=== PATIENT | male | born 1935 | race Caucasian/White ===

== ENCOUNTER → 2017-01-21 | Outpatient (CLI) | payer MEDICARE, BC ==
[2017-01-21 08:15] LABS: Basophils # (A) 0.1 k/uL (0-0.2); Basophils % (A) 1 %; CH 35.4; CHCM 33.4; Eosinophils # (A) 0.4 k/uL (0-0.7); Eosinophils % (A) 4 %; HCT 45.2 % (39.0-53.0); HDW 2.57; HGB 14.9 gm/dL (13.0-17.5); Luc # (Auto) 0.35; Luc % (Auto) 4; Lymphocytes # (A) 2.4 k/uL (1.0-4.8); Lymphocytes % (A) 27 %; MCHC 32.9 g/dL (31.0-37.0); MCV 106.5 fL (80.0-100.0); Macrocytosis Moderate; Mean Platelet Volume 7.6; Monocytes # (A) 0.8 k/uL (0-1.0); Monocytes % (A) 9 %; Neutrophils # (A) 5.1 k/uL (1.3-7.7); Neutrophils % (A) 56 %; RBC 4.24 m/uL (4.30-5.90); RDW 13.5 % (11.5-15.5); WBC 9.1 k/uL (3.8-10.6); WBC (Perox) 8.87
[2017-01-21 08:19] LABS: Appearance,Urine Clear (Clear); Bilirubin,Urine Negative (Negative); Glucose,Urine (UA) Negative (Negative); Ketones,Urine Negative (Negative); Leukocyte Esterase,Urine Negative (Negative); Nitrite,Urine Negative (Negative); PH, Urine 6.5 (5.0-8.0); Particle Count 467; Protein,Urine 2+ (Negative); RBC,Urine <1 /hpf (0-5); Specific Gravity,Urine 1.013 (1.001-1.035); UA Billing (MACRO vs. MICRO) MICRO; Urobilinogen,Urine <2.0 mg/dL (<2.0); WBC,Urine 1 /hpf (0-5)
[2017-01-21 09:07] LABS: ALT 39 U/L (21-72); AST 25 U/L (17-59); Alkaline Phosphatase 98 U/L (38-126); Anion Gap 6 mmol/L; Blood Urea Nitrogen 18 mg/dL (9-20); Calcium 10.8 mg/dL (8.4-10.2); Carbon Dioxide 33 mmol/L (22-30); Chloride 104 mmol/L (98-107); Cholesterol 169 mg/dL (<200); Creatine Kinase 44 U/L (55-170); Glucose 121 mg/dL (74-99); HDL Cholesterol 51 mg/dL (40-60); Non-African American GFR(MDRD) >60 (>60 ml/min/1.73 sqM); Sodium 143 mmol/L (137-145); Total Bilirubin 0.4 mg/dL (0.2-1.3); Total Protein 6.6 g/dL (6.3-8.2); Uric Acid 5.4 mg/dL (3.5-8.5)
[2017-01-21 09:33] LABS: Prostate Specific Antigen 2.34 ng/mL (0.00-4.00)
[2017-01-21 14:39] LABS: Hemoglobin A1C 5.9 % (4.2-6.1)
== END | disposition home or self-care (01) ==
LOC: LABWHC1 07:45
PROVIDERS: ATTEND Internal Medicine
DX: E55.9 Vitamin D deficiency, unspecified (principal); R79.9 Abnormal finding of blood chemistry, unspecified; E78.00 Pure hypercholesterolemia, unspecified; I10 Essential (primary) hypertension; N40.1 Benign prostatic hyperplasia with lower urinary tract symptoms; G47.33 Obstructive sleep apnea (adult) (pediatric)
CPT/HCPCS: 36415; 80053; 80061; 81001; 82306; 82550; 83036; 84153; 84439; 84443; 84550; 85025

== ENCOUNTER → 2018-11-27 | Outpatient (CLI) | payer MEDICARE, BC ==
--- NOTE | 2018-11-27 16:11 | US ---
EXAMINATION TYPE: US venous doppler duplex LE BI DATE OF EXAM: 11/27/2018 3:42 PM COMPARISON: NONE CLINICAL HISTORY: 83-year-old male M79.606 PAIN IN HAILY LEGS. Pain bilateral legs SIDE PERFORMED: bilateral TECHNIQUE: The lower extremity deep venous system is examined utilizing real time linear array sonog lanie with graded compression, doppler sonography and color-flow sonography. FINDINGS: VESSELS IMAGED: External Iliac Vein (EIV) Common Femoral Vein Deep Femoral Vein Greater Saphenous Vein * Femoral Vein Popliteal Vein Small Saphenous Vein * Proximal Calf Veins (* superficial vessels) Right Leg: Hair Dryer notes: No evidence of DVT. Limitations due to patient's body habitus, unable to visualize lower femoral vein for compression Left Leg: No evidence of DVT IMPRESSION: 1. No evidence for DVT within the left lower extremity imaged from the groin to the upper calf. 2. Assessment of the right lower extremity limited due to patient body habitus. Unable to adequately visualize the lower femoral vein. No evidence for DVT within the remainder of the right lower extremi ty imaged down to the upper calf.
== END | disposition home or self-care (01) ==
LOC: RADUSWWP 15:12
PROVIDERS: ATTEND Internal Medicine
DX: M79.606 Pain in leg, unspecified (principal)
CPT/HCPCS: 93970

== ENCOUNTER 2021-01-16 11:54 | Inpatient (IN) | payer MEDICARE, BC ==
[2021-01-16] MEDS ORDERED: NITROGLYCERIN OINT 1 INCH/GM PACKET TOPICAL STA (12:01)
--- NOTE | 2021-01-16 12:04 | ED ---
General Adult HPI - General Stated complaint: chest pain Time Seen by Provider: 01/16/21 11:54 Source: patient, RN notes reviewed, old records reviewed - History of Present Illness Initial comments: This is an 85-year-old male with past medical history significant for coronary artery disease and patient states he's had an FL in the past. Patient also has a history of high blood pressure and high cholesterol but denies any history of diabetes. Patient states she smoked many years ago but not recently. Patient states he woke up about 3:00 in the morning and had chest heaviness and some shortness of breath. Patient states took 2 of his nitroglycerin with no relief and so he called EMS this morning they came gave him another nitroglycerin and aspirin and he still had no relief. Patient currently says he is feeling a l ittle bit better than he was as morning. Patient denies any fever chills or cough per patient denies any palpitations. Patient denies any lightheadedness or dizziness. Patient denies any leg swelling or calf tenderness. Patient denies abdominal pain patient denies nausea vomiting diarrhea. Patient indicated that this pain felt like the same pain he had before when he had a heart attack. - Related Data Home Medications Medication Instructions Recorded Confirmed Ammonium Lactate Cream [Lac-Hydrin 1 applic TOPICAL BID 01/16/21 01/16/21 12% Cream] Aspirin EC [Ecotrin Low Dose] 81 mg PO DAILY 01/16/21 01/16/21 Calcium Carbonate/Vitamin D3 1 tab PO AC-BID 01/16/21 01/16/21 [Calcium 500-Vit D3 5 Mcg (200 Iu)] Clonidine(Unknown Dose) 1 tab PO HS 01/16/21 01/16/21 Cyanocobalamin (Vitamin B-12) 1,000 mcg PO Q48H 01/16/21 01/16/21 [Vitamin B-12] Docusate [Colace] 100 mg PO DAILY PRN 01/16/21 01/16/21 Ferrous Sulfate [Feosol] 325 mg PO DAILY 01/16/21 01/16/21 Fluticasone/Umeclidin/Vilanter 1 puff INHALATION DIRECTED 01/16/21 01/16/21 [Trelegy Ellipta 100-62.5-25] Folic Acid 1 mg PO DAILY 01/16/21 01/16/21 Furosemide [Lasix] 40 mg PO BID 01/16/21 01/16/21 Gabapentin 600 mg PO HS 01/16/21 01/16/21 Gabapentin [Neurontin] 300 mg PO DAILY 01/16/21 01/16/21 Ipratropium-Albuterol Nebulize 3 ml INHALATION RT-QID PRN 01/16/21 01/16/21 [Duoneb 0.5 mg-3 mg/3 ml Soln] Ipratropium/Albuter 20-100Mcg 1 puff INHALATION DIRECTED 01/16/21 01/16/21 [Combivent Respimat 20-100Mcg Inhaler] Losartan [Cozaar] 50 mg PO BID 01/16/21 01/16/21 Nitroglycerin Sl Tabs [Nitrostat] 0.4 mg SL Q5M PRN 01/16/21 01/16/21 Omeprazole 20 mg PO DIRECTED 01/16/21 01/16/21 Tamsulosin [Flomax] 0.4 mg PO DAILY 01/16/21 01/16/21 Vit C/E/Zn/Coppr/Lutein/Zeaxan 1 cap PO DAILY 01/16/21 01/16/21 [Preservision Areds 2 Softgel] rOPINIRole HCL [Requip] 0.25 mg PO HS 01/16/21 01/16/21 Allergies Allergy/AdvReac Type Severity Reaction Status Date / Time No Known Allergies Allergy Verified 01/16/21 12:29 Review of Systems ROS Statement: Those systems with pertinent positive or pertinent negative responses have been documented in the HPI. ROS Other: All systems not noted in ROS Statement are negative. General Exam - General Exam Comments Initial Comments: GENERAL: Patient is well-developed and well-nourished. Patient is nontoxic and well- hydrated and is in mild distress. ENT: Neck is soft and supple. No significant lymphadenopathy is noted. Oropharynx is clear. Moist mucous membranes. Neck has full range of motion without el iciting any pain. EYES: The sclera were anicteric and conjunctiva were pink and moist. Extraocular movements were intact and pupils were equal round and reactive to light. Eyelids were unremarkable. PULMONARY: Unlabored respirations. Good breath sounds bilaterally. No audible rales rhonchi or wheezing was noted. CARDIOVASCULAR: There is a regular rate and rhythm without any murmurs gallops or rubs. ABDOMEN: Soft and nontender with normal bowel sounds. SKIN: Skin is clear with no lesions or rashes and otherwise unremarkable. NEUROLOGIC: Patient is alert and oriented x3. Cranial nerves II through XII are grossly intact. Motor and sensory are also intact. Normal speech, volume and content. Symmetrical smile. MUSCULOSKELETAL: Normal extremities with adequate strength and full range of motion. No lower extremity swelling or edema. No calf tenderness. LYMPHATICS: No significant lymphadenopathy is noted PSYCHIATRIC: Normal psychiatric evaluation. Course Vital Signs 01/16/21 12:02 Temperature 98.0 F Pulse Rate 58 L Respiratory 18 Rate Blood Pressure 167/84 O2 Sat by Pulse 92 L Oximetry Medical Decision Making - Medical Decision Making Patient's chest pain is much improved. Chest x-ray shows no acute abnormality. EKG shows sinus rhythm with occasional PVC at 68 bpm AL interval is 280 QRS is 122 QT interval 426 QTC is 452. Patient's EKG shows no ST segment elevation or depression. I spoke with Dr. Hollins he agreed to admit the patient admitted the patient write admitting orders. I started the patient on heparin I continue heparin and aspirin and Nitropaste floor. I consult to cardiology. - Lab Data Result diagrams: 01/16/21 12:46 01/16/21 12:46 Lab Results 01/16/21 01/16/21 01/16/21 Range/Units 12:46 12:46 12:46 WBC 7.9 (3.8-10.6) k/uL RBC 3.08 L (4.30-5.90) m/uL Hgb 11.4 L (13.0-17.5) gm/dL Hct 33.1 L (39.0-53.0) % MCV 107.5 H (80.0-100.0) fL MCH 36.9 H (25.0-35.0) pg MCHC 34.3 (31.0-37.0) g/dL RDW 13.4 (11.5-15.5) % Plt Count 341 (150-450) k/uL MPV 8.7 Neutrophils % 60 % Lymphocytes % 22 % Monocytes % 10 % Eosinophils % 4 % Basophils % 1 % Neutrophils # 4.7 (1.3-7.7) k/uL Lymphocytes # 1.7 (1.0-4.8) k/uL Monocytes # 0.8 (0-1.0) k/uL Eosinophils # 0.3 (0-0.7) k/uL Basophils # 0.1 (0-0.2) k/uL Macrocytosis Moderate PT 10.2 (9.0-12.0) sec INR 0.9 (<1.2) APTT 25.0 (22.0-30.0) sec Sodium 139 (137-145) mmol/L Potassium 4.1 (3.5-5.1) mmol/L Chloride 104 (98-107) mmol/L Carbon Dioxide 31 H (22-30) mmol/L Anion Gap 4 mmol/L BUN 33 H (9-20) mg/dL Creatinine 1.36 H (0.66-1.25) mg/dL Est GFR (CKD-EPI)AfAm 55 (>60 ml/min/1.73 sqM) Est GFR (CKD-EPI)NonAf 47 (>60 ml/min/1.73 sqM) Glucose 112 H (74-99) mg/dL Calcium 10.1 (8.4-10.2) mg/dL Magnesium 2.1 (1.6-2.3) mg/dL Total Bilirubin 0.6 (0.2-1.3) mg/dL AST 28 (17-59) U/L ALT 15 (4-49) U/L Alkaline Phosphatase 119 (38-126) U/L Troponin I (0.000-0.034) ng/mL Total Protein 5.9 L (6.3-8.2) g/dL Albumin 3.4 L (3.5-5.0) g/dL 01/16/21 Range/Units 12:46 WBC (3.8-10.6) k/uL RBC (4.30-5.90) m/uL Hgb (13.0-17.5) gm/dL Hct (39.0-53.0) % MCV (80.0-100.0) fL MCH (25.0-35.0) pg MCHC (31.0-37.0) g/dL RDW (11.5-15.5) % Plt Count (150-450) k/uL MPV Neutrophils % % Lymphocytes % % Monocytes % % Eosinophils % % Basophils % % Neutrophils # (1.3-7.7) k/uL Lymphocytes # (1.0-4.8) k/uL Monocytes # (0-1.0) k/uL Eosinophils # (0-0.7) k/uL Basophils # (0-0.2) k/uL Macrocytosis PT (9.0-12.0) sec INR (<1.2) APTT (22.0-30.0) sec Sodium (137-145) mmol/L Potassium (3.5-5.1) mmol/L Chloride (98-107) mmol/L Carbon Dioxide (22-30) mmol/L Anion Gap mmol/L BUN (9-20) mg/dL Creatinine (0.66-1.25) mg/dL Est GFR (CKD-EPI)AfAm (>60 ml/min/1.73 sqM) Est GFR (CKD-EPI)NonAf (>60 ml/min/1.73 sqM) Glucose (74-99) mg/dL Calcium (8.4-10.2) mg/dL Magnesium (1.6-2.3) mg/dL Total Bilirubin (0.2-1.3) mg/dL AST (17-59) U/L ALT (4-49) U/L Alkaline Phosphatase (38-126) U/L Troponin I 0.033 (0.000-0.034) ng/mL Total Protein (6.3-8.2) g/dL Albumin (3.5-5.0) g/dL Critical Care Time Critical Care Time: Yes Total Critical Care Time: 35 Disposition Clinical Impression: Unstable angina pectoris Disposition: ADMITTED IP TO THIS [facility] Time of Disposition: 13:54
[2021-01-16 12:55] LABS: Basophils # (A) 0.1 k/uL (0-0.2); Basophils % (A) 1 %; Eosinophils # (A) 0.3 k/uL (0-0.7); Eosinophils % (A) 4 %; HCT 33.1 % (39.0-53.0); HGB 11.4 gm/dL (13.0-17.5); Lymphocytes # (A) 1.7 k/uL (1.0-4.8); Lymphocytes % (A) 22 %; MCH 36.9 pg (25.0-35.0); MCHC 34.3 g/dL (31.0-37.0); MCV 107.5 fL (80.0-100.0); Macrocytosis Moderate; Mean Platelet Volume 8.7; Monocytes # (A) 0.8 k/uL (0-1.0); Monocytes % (A) 10 %; Neutrophils # (A) 4.7 k/uL (1.3-7.7); Neutrophils % (A) 60 %; Platelet Count 341 k/uL (150-450); RBC 3.08 m/uL (4.30-5.90); RDW 13.4 % (11.5-15.5); WBC 7.9 k/uL (3.8-10.6)
[2021-01-16 13:05] LABS: Albumin 3.4 g/dL (3.5-5.0); Calcium 10.1 mg/dL (8.4-10.2); INR 0.9 (<1.2); Magnesium 2.1 mg/dL (1.6-2.3); Potassium 4.1 mmol/L (3.5-5.1); Prothrombin Time 10.2 sec (9.0-12.0); Total Bilirubin 0.6 mg/dL (0.2-1.3); Total Protein 5.9 g/dL (6.3-8.2)
--- NOTE | 2021-01-16 13:36 | XR ---
EXAMINATION TYPE: XR chest 2V DATE OF EXAM: 01/16/2021 COMPARISON: Radiographs 12/22/2017 HISTORY: Chest pain TECHNIQUE: Frontal and lateral views of the chest are obtained. FINDINGS: Heart is enlarged, stable. The pulmonary vasculature is prominent centrally similar to anne or. There is similar elevation of the right hemidiaphragm. There are bilateral, right greater than left b asilar strandy opacities. There is blunting of the left costophrenic angle. The osseous structures ar e intact. IMPRESSION: Cardiomegaly with central pulmonary vascular distention and a small left effusion.
[2021-01-16] MEDS ORDERED: HEPARIN SODIUM 1,000 UN/ML (10ML VL) IV ONE (13:55)
[2021-01-16] MEDS ORDERED: NITROGLYCERIN SL TABS 0.4 MG TAB SUBLINGUAL PRN (13:56)
[2021-01-16] MEDS: HEPARIN SOD,PORK IN 0.45% NACL 25,000 UNIT in 0.45% NACL 1 250ML.BAG IV SCH (15:35)
[2021-01-16] MEDS: NITROGLYCERIN OINT 1 INCH/GM PACKET TOPICAL SCH (20:23)
[2021-01-16] MEDS ORDERED: HEPARIN SODIUM 1,000 UN/ML (10ML VL) IV PRN (22:21)
[2021-01-17] MEDS: NITROGLYCERIN OINT 1 INCH/GM PACKET TOPICAL SCH ×5 (00:14→23:34)
[2021-01-17] MEDS ORDERED: IPRATROPIUM-ALBUTEROL 3 ML NEB INHALATION PRN (07:44)
[2021-01-17] MEDS ORDERED: DOCUSATE 100 MG CAP PO PRN (07:44)
[2021-01-17] MEDS: LOSARTAN 50 MG TAB PO SCH ×2 (08:12→20:08)
[2021-01-17] MEDS: PANTOPRAZOLE 40 MG TABLET PO SCH (08:12)
[2021-01-17] MEDS ORDERED: ASPIRIN 325 MG TAB PO SCH (09:00)
--- NOTE | 2021-01-17 10:40 | P.HPIM ---
History of Present Illness H&P Date: 01/17/21 Chief Complaint: Chest pain HISTORY OF PRESENT ILLNESS: This is an 85-year-old male one of my patient with a previous medical history significant for hypertension and hypertensive cardio vascular disease, hyperlipidemia, history of chronic obstructive pulmonary disease, history of chronic diastolic heart failure, chronic kidney disease, obesity with obstructive sleep apnea and obesity hypoventilation syndrome, history of skin cancer, patient was recently hospitalized at [facility] after he was admitted to the hospital with increased swelling in both lower extremity and increased shortness of breath was seen in consultation by pulmonary medicine as well as by cardiology he underwent a battery of testing including us x-ray as well as echocardiogram that showed normal ejection fraction of 55% with mild aortic stenosis and diastolic dysfunction, and he developed to have a significant bradycardia arrhythmias he was taken off beta blockers and his med ications were adjusted, and the patient followed up with me as an outpatient in the office last week and he was doing fine with a new changes of his medication apparently the patient was brought into the emergency department at [facility] yesterday because of increased chest pain and shortness of breath he stated that he woke up at 3:00 in the morning on the day of the admission with increased chest pain and heaviness he took 2 nitroglycerin without relief EMS came and saw the patient on became the third nitro glycerin and an aspirin and transported him to the emergency department at [facility] his 12-lead EKG showed sinus rhythm with first-degree AV block and a Q-wave inferiorly suggestive of an old OR, chest x-ray did not show any evidence of acute of normalities, patient was admitted to the hospital for evaluation by cardiology rule out acute coronary syndrome. REVIEW OF SYSTEMS: Constitutional: No documented fever, no chills, no night sweats. No weight change. No weakness, fatigue or lethargy. No daytime sleepiness. HEENT: No headache. No blurred vision or double vision, no loss of vision. No loss of Hearing, no ringing in the ears, no dizziness. No nasal drainage or congestion. No epistaxis. No sore throat. Lungs: positive for shortness of breath, no cough, no sputum production. No wheezing. Reports dyspnea with activity. Cardiovascular: positive for chest pain, positive for lower extremity edema. No palpitations. No paroxysmal nocturnal dyspnea. No orthopnea. No lightheadedness or dizziness. No syncopal episodes. Abdominal: Reports no abdominal pain. No nausea, vomiting. No diarrhea. No constipation. No bloody or tarry stools reports loss of appetite. Genitourinary: No dysuria, increased frequency, urgency. No urinary retention. Musculoskeletal: No myalgias. positive for muscle weakness, no gait dysfunction, no frequent falls. positive for back pain, positive for neck pain. Integumentary: No wounds, no lesions. No rash or pruritus. No unusual bruising. No change in hair or nails. Neurologic: No aphasia. No facial droop. No change in mentation. No head injury. No headache. No paralysis. positive for paresthesia. Psychiatric: No depression. No anxiety. No mood swings. Endocrine: No abnormal blood sugars. No weight change. PAST MEDICAL HISTORY: Coronary artery disease status post myocardial infarction. Hypertension and hypertensive cardio vascular disease. Hyperlipidemia. Chronic kidney disease stage II. Enlarged prostate. COPD Obesity with obstructive sleep apnea. Restless leg syndrome. Neuropathy. GERD Chronic diastolic heart failure. PAST SURGICAL HISTORY: Tonsillectomy and adenoidectomy. Bilateral total knee arthroplasty. Bilateral cataract surgery. Exploratory laparotomy with splenectomy. Skin cancer removal. SOCIAL HISTORY: Patient used to smoke about pack every day smoker for many years and he quit many years ago, he drinks occasionally, denies any drug abuse. He lives with his . FAMILY HISTORY: Father at age of 76 from diabetes mellitus type 2 as well as hypertension and he had a history of stroke, mother at age of 84 and she had a history of hypertension, patient had 2 brothers one of them from colon cancer and West Nile virus the other one is alive patient had 3 sisters one at the age of 1-year-old one from breast cancer and the third one from Alzheimer dementia patient has one son who is morbidly obese and one daughter no major m edical problems PHYSICAL EXAMINATION: General: This is an 85-year-old male who is laying down in bed in no apparent distress. HEENT: Head is atraumatic, normocephalic, pupils were equal round reactive to light and recommendation, extraocular muscle movement were intact, sclera nonicteric, conjunctivae were pale, mucous membranes of the mouth are somewhat dry. Neck: Supple, no JVP, normal carotid upstroke bilaterally, no lymphadenopathy. Chest: Decreased breath sounds at the bases, few rhonchi, no expiratory wheezes, no chest wall tenderness, no intercostal retractions. Heart: First heart sound is normal, second heart sounds normal the systolic ejection murmur 2/6 over the left sternal border. Abdomen: Soft, nontender, nondistended, positive bowel sounds. Extremities: There is +1 edema no calf tenderness DP +2 bilaterally. Neurologic examination: Patient is awake alert and oriented X 3, cranial nerves II-12 appear grossly intact, muscle power were 5 out of 5 in upper extremities and 5 out of 5 in bilateral lower extremities, deep tendon reflexes normal bilaterally. ASSESSMENT AND PLAN: 1. Non-ST elevation myocardial infarction. Patient was recently hospitalized at [facility] he underwent echocardiogram that did show evidence of diastolic dysfunction normal LV function of 55% as well as mild aortic stenosis, patient was started on aspirin 81 mg every day, he was started on heparin drip as well, he would be off beta terrance due to his bradyarrhythmias, we'll continue to monitor the patient very closely cardiology consultation for possible left heart catheterization, start the patient on atorvastatin 40 mg orally once every day as well. 2. History of coronary artery disease status post myocardial infarctions in the past. Continue aspirin 81 mg once every day, heparin drip, start the patient on Lipitor 40 mg once every day, hold off beta terrance due to bradycardia arrhythmias and pauses. 3. Hypertension and hypertensive cardiovascular disease. Continue patient on amlodipine 5 mg orally twice every day, continue losartan 50 mg orally twice every day, continue clonidine 0.1 mg orally at bedtime, start the patient on hydralazine 25 mg orally twice every day. 4. Hyperlipidemia. Start the patient on atorvastatin 40 mg orally once every day. 5. Chronic obstructive pulmonary disease. Continue patient on DuoNeb 3 mg nebulization 4 times every day as well as Trelegy Ellipta once every day. 6. Obesity with obstructive sleep apnea and obesity hypoventilation syndrome. Continue weight loss, continue CPAP machine. 7. Restless leg syndrome. Continue Requip 0.25 mg orally bedtime. 8. Chronic kidney disease stage II. The patient is stable. 9. Chronic diastolic heart failure. Continue patient on losartan 50 mg orally twice every day, continue patient on Lasix 40 mg orally twice every day. 10. GERD. Continue omeprazole 20 mg orally once every day. 11. Peripheral neuropathy. Continue gabapentin 600 mg in the evening and 300 mg in the morning. 12. Enlarged prostate. Continue Flomax 0.4 mg once every day. 13. DVT prophylaxis. Continue heparin drip. 14. GI prophylaxis. Continue with PPI. 15. Admit to inpatient. Estimated length of stay 2 midnights. 16. Full code. Past Medical History Past Medical History: Cancer, COPD, Hyperlipidemia, Hypertension, Osteoarthritis (OA), Renal Disease Additional Past Medical History / Comment(s): skin CA, NSTEMI December 2020. History of Any Multi-Drug Resistant Organisms: MRSA Date of last positivie culture/infection: Pt is unsure but states it has been years. MDRO Source:: Right knee after knee replacement Past Surgical History: Orthopedic Surgery, Tonsillectomy Additional Past Surgical History / Comment(s): ex lap - SPLEENECTOMY, eye surgery, bilateral knee replacements Past Anesthesia/Blood Transfusion Reactions: No Reported Reaction Past Psychological History: No Psychological Hx Reported Smoking Status: Former smoker Past Alcohol Use History: Occasional Additional Past Alcohol Use History / Comment(s): Pt states he has 1 drink maybe every other day. Past Drug Use History: None Reported - Past Family History Father Family Medical History: Diabetes Mellitus Mother Family Medical History: Hypertension Medications and Allergies Home Medications Medication Instructions Recorded Confirmed Type Ammonium Lactate Cream [Lac-Hydrin 1 applic TOPICAL BID 01/16/21 01/16/21 History 12% Cream] Aspirin EC [Ecotrin Low Dose] 81 mg PO DAILY 01/16/21 01/16/21 History Calcium Carbonate/Vitamin D3 1 tab PO AC-BID 01/16/21 01/16/21 History [Calcium 500-Vit D3 5 Mcg (200 Iu)] Clonidine(Unknown Dose) 1 tab PO HS 01/16/21 01/16/21 History Cyanocobalamin (Vitamin B-12) 1,000 mcg PO Q48H 01/16/21 01/16/21 History [Vitamin B-12] Docusate [Colace] 100 mg PO DAILY PRN 01/16/21 01/16/21 History Ferrous Sulfate [Feosol] 325 mg PO DAILY 01/16/21 01/16/21 History Fluticasone/Umeclidin/Vilanter 1 puff INHALATION DIRECTED 01/16/21 01/16/21 History [Trelegy Ellipta 100-62.5-25] Folic Acid 1 mg PO DAILY 01/16/21 01/16/21 History Furosemide [Lasix] 40 mg PO BID 01/16/21 01/16/21 History Gabapentin 600 mg PO HS 01/16/21 01/16/21 History Gabapentin [Neurontin] 300 mg PO DAILY 01/16/21 01/16/21 History Ipratropium-Albuterol Nebulize 3 ml INHALATION RT-QID PRN 01/16/21 01/16/21 History [Duoneb 0.5 mg-3 mg/3 ml Soln] Ipratropium/Albuter 20-100Mcg 1 puff INHALATION DIRECTED 01/16/21 01/16/21 History [Combivent Respimat 20-100Mcg Inhaler] Losartan [Cozaar] 50 mg PO BID 01/16/21 01/16/21 History Nitroglycerin Sl Tabs [Nitrostat] 0.4 mg SL Q5M PRN 01/16/21 01/16/21 History Omeprazole 20 mg PO DIRECTED 01/16/21 01/16/21 History Tamsulosin [Flomax] 0.4 mg PO DAILY 01/16/21 01/16/21 History Vit C/E/Zn/Coppr/Lutein/Zeaxan 1 cap PO DAILY 01/16/21 01/16/21 History [Preservision Areds 2 Softgel] rOPINIRole HCL [Requip] 0.25 mg PO HS 01/16/21 01/16/21 History Allergies Allergy/AdvReac Type Severity Reaction Status Date / Time No Known Allergies Allergy Verified 01/16/21 12:29 Physical Exam Vitals: Vital Signs Temp Pulse Pulse Resp BP BP Pulse Ox 01/17/21 08:00 16 01/17/21 07:00 98.1 F 61 16 179/85 95 01/17/21 06:55 98.2 F 62 18 196/95 99 01/17/21 05:37 59 L 171/86 01/17/21 02:00 59 L 20 01/17/21 00:52 97.6 F 59 L 20 180/79 95 01/16/21 20:27 56 L 172/56 01/16/21 20:00 56 L 01/16/21 19:26 97.4 F L 57 L 18 199/89 99 01/16/21 16:00 56 L 17 166/91 01/16/21 15:00 54 L 17 157/81 01/16/21 14:00 57 L 12 176/85 01/16/21 13:00 167/84 01/16/21 12:08 87 L 01/16/21 12:02 98.0 F 58 L 18 167/84 92 L Intake and Output 01/16/21 01/17/21 01/17/21 22:59 06:59 14:59 Intake Total 1047.167 91.652 Output Total 300 100 Balance 747.167 91.652 -100 Intake: Intake, IV Titration 67.167 91.652 Amount Heparin Sod,Pork in 0.45% 67.167 91.652 NaCl 25,000 unit In 0.45 % NaCl 1 250ml.bag @ 9. 585 UNITS/KG/HR 10 mls/hr IV .Q24H [facility] Rx#: [id number] Oral 980 0 Output: Urine 300 100 Other: Voiding Method Urinal Toilet Urinal Urinal Diaper # Voids 1 # Bowel Movements 1 Weight 104.326 kg Results CBC & Chem 7: 01/16/21 12:46 01/16/21 12:46 Labs: Abnormal Lab Results - Last 24 Hours (Table) 01/16/21 01/16/21 01/16/21 Range/Units 12:46 12:46 15:05 RBC 3.08 L (4.30-5.90) m/uL Hgb 11.4 L (13.0-17.5) gm/dL Hct 33.1 L (39.0-53.0) % MCV 107.5 H (80.0-100.0) fL MCH 36.9 H (25.0-35.0) pg APTT (22.0-30.0) sec Carbon Dioxide 31 H (22-30) mmol/L BUN 33 H (9-20) mg/dL Creatinine 1.36 H (0.66-1.25) mg/dL Glucose 112 H (74-99) mg/dL Troponin I 0.048 H* (0.000-0.034) ng/mL Total Protein 5.9 L (6.3-8.2) g/dL Albumin 3.4 L (3.5-5.0) g/dL 01/16/21 01/16/21 01/17/21 Range/Units 17:26 20:58 04:52 RBC (4.30-5.90) m/uL Hgb (13.0-17.5) gm/dL Hct (39.0-53.0) % MCV (80.0-100.0) fL MCH (25.0-35.0) pg APTT 41.6 H 46.5 H (22.0-30.0) sec Carbon Dioxide (22-30) mmol/L BUN (9-20) mg/dL Creatinine (0.66-1.25) mg/dL Glucose (74-99) mg/dL Troponin I 0.049 H* (0.000-0.034) ng/mL Total Protein (6.3-8.2) g/dL Albumin (3.5-5.0) g/dL Thrombosis Risk Factor Assmnt - Choose All That Apply Any of the Below Risk Factors Present?: Yes Each Factor Represents 1 point: Abnormal pulmonary function (COPD), Swollen legs (current) Each Risk Factor Represents 3 Points: Age 75 years or older Thrombosis Risk Factor Assessment Total Risk Factor Score: 5 Thrombosis Risk Factor Assessment Level: High Risk
[2021-01-17] MEDS ORDERED: ATORVASTATIN 40 MG TAB PO SCH (10:45)
[2021-01-17] MEDS: IPRATROPIUM 0.5 MG/2.5 ML NEBU INHALATION SCH ×3 (11:14→20:43)
[2021-01-17] MEDS: HEPARIN SOD,PORK IN 0.45% NACL 25,000 UNIT in 0.45% NACL 1 250ML.BAG IV SCH (11:26)
[2021-01-17] MEDS ORDERED: amLODIPine 5 MG TAB PO STA (11:45)
[2021-01-17] MEDS ORDERED: hydrALAZINE HCL 25 MG TAB PO STA (11:45)
[2021-01-17] MEDS: FOLIC ACID 1 MG TAB PO SCH (11:52)
[2021-01-17] MEDS: TAMSULOSIN 0.4 MG CAP.ER.24H PO SCH (11:52)
[2021-01-17] MEDS: GABAPENTIN 300 MG CAP PO SCH ×2 (11:52→20:08)
[2021-01-17] MEDS: FUROSEMIDE 40 MG TAB PO SCH ×2 (11:52→15:58)
[2021-01-17] MEDS: FERROUS SULFATE 325 MG TAB PO SCH (11:53)
[2021-01-17] MEDS: CALCIUM CARB-VIT D 500 MG-5 MCG TAB PO SCH ×2 (11:55→15:57)
[2021-01-17] MEDS: VIT A,C & E-LUTEIN-MINERALS 1 EACH TAB PO SCH (11:55)
--- NOTE | 2021-01-17 11:56 | P.CRDCN ---
History of Present Illness Consult date: 01/17/21 Requesting physician: Efren Foss Reason for Consult (text): Unstable angina Chief complaint: Chest pain History of present illness: This is Isaias Wiley NP dictating a consult on this patient on behalf of Dr. Mcdaniel. The patient was interviewed and examined. HPI: Patient is an 85-year-old male presented to the hospital with heaviness in his chest on the left side with mild pain which started 2 days ago. He states the pain was constant, and had no aggravating or alleviating factors. He reports a history of [place] in the past. During his interview he states that the discomfort is very mild but still present. ROS: [No fever, chills, or rigors] [no cough, phlegm, or expectoration] [no nausea, vomiting, or diarrhea] [no hematuria, dysuria] [no musculoskelatal complaints] [no strokes or seizures] [no skin lesions] EXAMINATION: GENERAL: Well-appearing, well-nourished and in no acute distress. NECK: Supple without JVD or thyromegaly. LUNGS: Breath sounds clear to auscultation bilaterally. Respiration equal and unlabored. No wheezes, rales or rhonchi. HEART: Regular rate and rhythm without rubs or gallops. Systolic murmur noted. S1 and S2 heard. EXTREMITIES: Normal range of motion, no edema. No clubbing or cyanosis. Peripheral pulses intact and strong. REVIEW OF LABS, ECG & MEDICAL DATA: LABS: Hemoglobin 11.4, APTT 46.5, sodium 139, potassium 4.1, B1 33, creatinine 1.36, serial troponins-0.033, 0.048, 0.049 EKG: Sinus rhythm with first-degree block VITALS: Temp 98.1, pulse 64, respirations 16, blood pressure 179/85, O2 sat 95% on 3 L nasal cannula. IMPRESSION/PLAN: 1. Chest pain with positive troponins-obtain echocardiogram. Schedule for heart cath. Continue anticoagulation. Increase hydralazine to 25 mg 3 times a day. Thank you for the consult and allowing us to participate in the care of this patient. Past Medical History Past Medical History: Cancer, COPD, Hyperlipidemia, Hypertension, Osteoarthritis (OA), Renal Disease Additional Past Medical History / Comment(s): skin CA, NSTEMI December 2020. History of Any Multi-Drug Resistant Organisms: MRSA Date of last positivie culture/infection: Pt is unsure but states it has been years. MDRO Source:: Right knee after knee replacement Past Surgical History: Orthopedic Surgery, Tonsillectomy Additional Past Surgical History / Comment(s): ex lap - SPLEENECTOMY, eye surgery, bilateral knee replacements Past Anesthesia/Blood Transfusion Reactions: No Reported Reaction Past Psychological History: No Psychological Hx Reported Smoking Status: Former smoker Past Alcohol Use History: Occasional Additional Past Alcohol Use History / Comment(s): Pt states he has 1 drink maybe every other day. Past Drug Use History: None Reported - Past Family History Father Family Medical History: Diabetes Mellitus Mother Family Medical History: Hypertension Medications and Allergies Home Medications Medication Instructions Recorded Confirmed Type Ammonium Lactate Cream [Lac-Hydrin 1 applic TOPICAL BID 01/16/21 01/16/21 Hi story 12% Cream] Aspirin EC [Ecotrin Low Dose] 81 mg PO DAILY 01/16/21 01/16/21 History Calcium Carbonate/Vitamin D3 1 tab PO AC-BID 01/16/21 01/16/21 History [Calcium 500-Vit D3 5 Mcg (200 Iu)] Clonidine(Unknown Dose) 1 tab PO HS 01/16/21 01/16/21 History Cyanocobalamin (Vitamin B-12) 1,000 mcg PO Q48H 01/16/21 01/16/21 History [Vitamin B-12] Docusate [Colace] 100 mg PO DAILY PRN 01/16/21 01/16/21 History Ferrous Sulfate [Feosol] 325 mg PO DAILY 01/16/21 01/16/21 History Fluticasone/Umeclidin/Vilanter 1 puff INHALATION DIRECTED 01/16/21 01/16/21 History [Trelegy Ellipta 100-62.5-25] Folic Acid 1 mg PO DAILY 01/16/21 01/16/21 History Furosemide [Lasix] 40 mg PO BID 01/16/21 01/16/21 History Gabapentin 600 mg PO HS 01/16/21 01/16/21 History Gabapentin [Neurontin] 300 mg PO DAILY 01/16/21 01/16/21 History Ipratropium-Albuterol Nebulize 3 ml INHALATION RT-QID PRN 01/16/21 01/16/21 History [Duoneb 0.5 mg-3 mg/3 ml Soln] Ipratropium/Albuter 20-100Mcg 1 puff INHALATION DIRECTED 01/16/21 01/16/21 History [Combivent Respimat 20-100Mcg Inhaler] Losartan [Cozaar] 50 mg PO BID 01/16/21 01/16/21 History Nitroglycerin Sl Tabs [Nitrostat] 0.4 mg SL Q5M PRN 01/16/21 01/16/21 History Omeprazole 20 mg PO DIRECTED 01/16/21 01/16/21 History Tamsulosin [Flomax] 0.4 mg PO DAILY 01/16/21 01/16/21 History Vit C/E/Zn/Coppr/Lutein/Zeaxan 1 cap PO DAILY 01/16/21 01/16/21 History [Preservision Areds 2 Softgel] rOPINIRole HCL [Requip] 0.25 mg PO HS 01/16/21 01/16/21 History Allergies Allergy/AdvReac Type Severity Reaction Status Date / Time No Known Allergies Allergy Verified 01/16/21 12:29 Physical Exam Vitals: Vital Signs Temp Pulse Pulse Resp BP BP Pulse Ox 01/17/21 11:25 64 01/17/21 11:15 64 01/17/21 08:00 16 01/17/21 07:00 98.1 F 61 16 179/85 95 01/17/21 06:55 98.2 F 62 18 196/95 99 01/17/21 05:37 59 L 171/86 01/17/21 02:00 59 L 20 01/17/21 00:52 97.6 F 59 L 20 180/79 95 01/16/21 20:27 56 L 172/56 01/16/21 20:00 56 L 01/16/21 19:26 97.4 F L 57 L 18 199/89 99 01/16/21 16:00 56 L 17 166/91 01/16/21 15:00 54 L 17 157/81 01/16/21 14:00 57 L 12 176/85 01/16/21 13:00 167/84 01/16/21 12:08 87 L 01/16/21 12:02 98.0 F 58 L 18 167/84 92 L Intake and Output 01/16/21 01/17/21 01/17/21 22:59 06:59 14:59 Intake Total 1047.167 91.652 67.077 Output Total 300 100 Balance 747.167 91.652 -32.923 Intake: Intake, IV Titration 67.167 91.652 67.077 Amount Heparin Sod,Pork in 0.45% 67.167 91.652 67.077 NaCl 25,000 unit In 0.45 % NaCl 1 250ml.bag @ 9. 585 UNITS/KG/HR 10 mls/hr IV .Q24H [facility] Rx#: [id number] Oral 980 0 Output: Urine 300 100 Other: Voiding Method Urinal Toilet Urinal Urinal Diaper # Voids 1 # Bowel Movements 1 Weight 104.326 kg Results 01/16/21 12:46 01/16/21 12:46 Cardiac Enzymes 01/16/21 01/16/21 01/16/21 Range/Units 12:46 12:46 15:05 AST 28 (17-59) U/L Troponin I 0.033 0.048 H* (0.000-0.034) ng/mL 01/16/21 Range/Units 17:26 AST (17-59) U/L Troponin I 0.049 H* (0.000-0.034) ng/mL Coagulation 01/16/21 01/16/21 01/17/21 Range/Units 12:46 20:58 04:52 PT 10.2 (9.0-12.0) sec APTT 25.0 41.6 H 46.5 H (22.0-30.0) sec CBC 01/16/21 Range/Units 12:46 WBC 7.9 (3.8-10.6) k/uL RBC 3.08 L (4.30-5.90) m/uL Hgb 11.4 L (13.0-17.5) gm/dL Hct 33.1 L (39.0-53.0) % Plt Count 341 (150-450) k/uL Comprehensive Metabolic Panel 01/16/21 Range/Units 12:46 Sodium 139 (137-145) mmol/L Potassium 4.1 (3.5-5.1) mmol/L Chloride 104 (98-107) mmol/L Carbon Dioxide 31 H (22-30) mmol/L BUN 33 H (9-20) mg/dL Creatinine 1.36 H (0.66-1.25) mg/dL Glucose 112 H (74-99) mg/dL Calcium 10.1 (8.4-10.2) mg/dL AST 28 (17-59) U/L ALT 15 (4-49) U/L Alkaline Phosphatase 119 (38-126) U/L Total Protein 5.9 L (6.3-8.2) g/dL Albumin 3.4 L (3.5-5.0) g/dL Current Medications Generic Name Dose Route Start Last Admin Trade Name Freq PRN Reason Stop Dose Admin Albuterol/Ipratropium 3 ml 01/17/21 07:44 Ipratropium-Albuterol 3 Ml Neb INHALATION RT-QID PRN Shortness Of Breath Amlodipine Besylate 5 mg 01/17/21 21:00 Amlodipine 5 Mg Tab PO BID [facility] Amlodipine Besylate 5 mg 01/17/21 11:45 Amlodipine 5 Mg Tab PO 01/17/21 11:46 ONCE STA Aspirin 325 mg 01/17/21 09:00 01/17/21 07:51 Aspirin 325 Mg Tab PO 325 mg DAILY [facility] Administration Atorvastatin Calcium 40 mg 01/17/21 10:45 Atorvastatin 40 Mg Tab PO DAILY [facility] Budesonide/Formoterol Fumarate 2 puff 01/17/21 20:00 Symbicort 80-4.5 Mcg Inhaler INHALATION RT-BID [facility] Calcium Carbonate 1 each 01/17/21 08:15 Calcium Carb-Vit D 500 Mg-5 Mcg Tab PO AC-BID [facility] Clonidine 0.1 mg 01/17/21 21:00 Clonidine Hcl 0.1 Mg Tab PO HS [facility] Cyanocobalamin 1,000 mcg 01/18/21 09:00 Cyanocobalamin 500 Mcg Tab PO Q48H [facility] Docusate Sodium 100 mg 01/17/21 07:44 Docusate 100 Mg Cap PO DAILY PRN Constipation Ferrous Sulfate 325 mg 01/17/21 09:00 Ferrous Sulfate 325 Mg Tab PO DAILY [facility] Folic Acid 1 mg 01/17/21 09:00 Folic Acid 1 Mg Tab PO DAILY [facility] Furosemide 40 mg 01/17/21 09:00 Furosemide 40 Mg Tab PO BID@0900,1600 [facility] Gabapentin 600 mg 01/17/21 21:00 Gabapentin 300 Mg Cap PO HS [facility] Gabapentin 300 mg 01/17/21 09:00 Gabapentin 300 Mg Cap PO DAILY [facility] Heparin Sodium (Porcine) 0 unit 01/16/21 22:21 01/16/21 22:39 Heparin Sodium 1,000 Un/Ml (10ml Vl) IV 2,608.15 unit PER PROTOCOL PRN Administration Low PTT Protocol Hydralazine HCl 25 mg 01/17/21 21:00 Hydralazine Hcl 25 Mg Tab PO BID [facility] Hydralazine HCl 25 mg 01/17/21 11:45 Hydralazine Hcl 25 Mg Tab PO 01/17/21 11:46 ONCE STA Heparin Sodium/Sodium Chloride 250 mls @ 10 mls/hr 01/16/21 14:00 01/17/21 11:26 25,000 unit/ Sodium Chloride IV 11.585 units/kg/hr .Q24H [facility] 12.086 mls/hr Administration Protocol 9.585 UNITS/KG/HR Ipratropium [place] 0.5 mg 01/17/21 12:00 01/17/21 11:14 Ipratropium 0.5 Mg/2.5 Ml Nebu INHALATION 0.5 mg RT-QID [facility] Administration Losartan Potassium 50 mg 01/17/21 09:00 01/17/21 08:12 Losartan 50 Mg Tab PO 50 mg BID VINNY Administration Multivitamins/Minerals 1 each 01/17/21 09:00 Vit A,C & K-Kvgeqt-Dwqzsxys 1 Each Tab PO DAILY [facility] Nitroglycerin 0.4 mg 01/16/21 13:56 Nitroglycerin Sl Tabs 0.4 Mg Tab SUBLINGUAL Q5M PRN Chest Pain Nitroglycerin 1 inch 01/16/21 18:00 01/17/21 05:35 Nitroglycerin Oint 1 Inch/Gm Packet TOPICAL 1 inch Q6HR [facility] Administration Pantoprazole Sodium 40 mg 01/17/21 08:15 01/17/21 08:12 Pantoprazole 40 Mg Tablet PO 40 mg AC-BRKFST VINNY Administration Ropinirole HCl 0.25 mg 01/17/21 21:00 Ropinirole Hcl 0.25 Mg Tab PO HS [facility] Tamsulosin HCl 0.4 mg 01/17/21 09:00 Tamsulosin 0.4 Mg Cap.Er.24h PO DAILY [facility] Intake and Output 01/16/21 01/17/2121 22:59 06:59 14:59 Intake Total 1047.167 91.652 67.077 Output Total 300 100 Balance 747.167 91.652 -32.923 Intake: Intake, IV Titration 67.167 91.652 67.077 Amount Heparin Sod,Pork in 0.45% 67.167 91.652 67.077 NaCl 25,000 unit In 0.45 % NaCl 1 250ml.bag @ 9. 585 UNITS/KG/HR 10 mls/hr IV .Q24H [facility] Rx#: [id number] Oral 980 0 Output: Urine 300 100 Other: Voiding Method Urinal Toilet Urinal Urinal Diaper # Voids 1 # Bowel Movements 1 Weight 104.326 kg 01/16/21 12:46 01/16/21 12:46
[2021-01-17] MEDS ORDERED: NITROGLYCERIN SL TABS 0.4 MG TAB SUBLINGUAL PRN (12:01)
[2021-01-17] MEDS ORDERED: ALPRAZolam 0.5 MG TAB PO PRN (12:01)
[2021-01-17] MEDS ORDERED: ALPRAZolam 0.25 MG TAB PO PRN (12:01)
[2021-01-17 12:50] LABS: Chol/HDL Ratio 2.24; LDL Cholesterol,Calculated 39.8 mg/dL (0.0-131.0); VLDL Calculation 11.2 mg/dL (5.00-40.00)
[2021-01-17] MEDS: cloNIDine HCL 0.1 MG TAB PO SCH (14:38)
[2021-01-17] MEDS: hydrALAZINE HCL 25 MG TAB PO SCH ×2 (15:58→20:08)
[2021-01-17] MEDS: amLODIPine 5 MG TAB PO SCH (20:07)
[2021-01-17] MEDS: SYMBICORT 80-4.5 MCG INHALER INHALATION SCH (20:44)
[2021-01-17] MEDS ORDERED: hydrALAZINE HCL 25 MG TAB PO SCH (21:00)
[2021-01-18] MEDS ORDERED: SODIUM CHLORIDE 0.9% 1,000 ML in EMPTY BAG 1 BAG IV ONE (00:01)
[2021-01-18] MEDS: NITROGLYCERIN OINT 1 INCH/GM PACKET TOPICAL SCH ×4 (05:53→23:29)
[2021-01-18] MEDS ORDERED: ATORVASTATIN 80 MG TAB PO ONE (06:00)
[2021-01-18] MEDS ORDERED: ASPIRIN 325 MG TAB PO ONE (06:00)
[2021-01-18] MEDS ORDERED: HEPARIN SODIUM,PORCINE 2,500 UNIT in SODIUM CHLORIDE 0.9% 250 ML IRRIGATION PRN (07:00)
[2021-01-18] MEDS ORDERED: HEPARIN SODIUM,PORCINE 10,000 UNIT in SODIUM CHLORIDE 0.9% 1,000 ML IRRIGATION PRN (07:00)
[2021-01-18] MEDS: SYMBICORT 80-4.5 MCG INHALER INHALATION SCH ×2 (07:27→20:28)
[2021-01-18] MEDS: IPRATROPIUM 0.5 MG/2.5 ML NEBU INHALATION SCH ×4 (07:27→20:28)
--- NOTE | 2021-01-18 08:11 | P.PN ---
Subjective Progress Note Date: 01/18/21 HISTORY OF PRESENT ILLNESS: This is an 85-year-old male one of my patient with a previous medical history significant for hypertension and hypertensive cardio vascular disease, hyperlipidemia, history of chronic obstructive pulmonary disease, history of chronic diastolic heart failure, chronic kidney disease, obesity with obstructive sleep apnea and obesity hypoventilation syndrome, history of skin cancer, patient was recently hospitalized at [facility] after he was admitted to the hospital with increased swelling in both lower extremity and increased shortness of breath was seen in consultation by pulmonary medicine as well as by cardiology he underwent a battery of testing including us x-ray as well as echocardiogram that showed normal ejection fraction of 55% with mild aortic stenosis and diastolic dysfunction, and he developed to have a significant bradycardia arrhythmias he was taken off beta blockers and his medications were adjusted, and the patient followed up with me as an outpatient in the office last week and he was doing fine with a new changes of his medication apparently the patient was brought into the emergency department at [facility] yesterday because of increased chest pain and shortness of breath he stated that he woke up at 3:00 in the morning on the day of the admission with increased chest pain and heaviness he took 2 nitroglycerin with out relief EMS came and saw the patient on became the third nitro glycerin and an aspirin and transported him to the emergency department at [facility] his 12-lead EKG showed sinus rhythm with first-degree AV block and a Q- wave inferiorly suggestive of an old [place], chest x-ray did not show any evidence of acute of normalities, patient was admitted to the hospital for evaluation by cardiology . 01/18: Patient sitting up at the edge of the bed he is feeling fine and he slept well last night, he denies any chest pain, shortness breath he continues to be on heparin drip, he was seen in consultation by cardiology yesterday scheduled to go for left heart catheterization today because of positive troponin and chest pain, based on heart catheterization and further recommendations is to follow, patient has not had any abdominal pain, nausea, vomiting, or diarrhea, he seems to be tolerating his treatment very well. REVIEW OF SYSTEMS: Constitutional: No documented fever, no chills, no night sweats. No weight change. No weakness, fatigue or lethargy. No daytime sleepiness. HEENT: No headache. No blurred vision or double vision, no loss of vision. No loss of Hearing, no ringing in the ears, no dizziness. No nasal drainage or congestion. No epistaxis. No sore throat. Lungs: positive for shortness of breath, no cough, no sputum production. No wheezing. Reports dyspnea with activity. Cardiovascular: positive for chest pain, positive for lower extremity edema. No palpitations. No paroxysmal nocturnal dyspnea. No orthopnea. No lightheadedness or dizziness. No syncopal episodes. Abdominal: Reports no abdominal pain. No nausea, vomiting. No diarrhea. No constipation. No bloody or tarry stools reports loss of appetite. Genitourinary: No dysuria, increased frequency, urgency. No urinary retention. Musculoskeletal: No myalgias. positive for muscle weakness, no gait dysfunction, no frequent falls. positive for back pain, positive for neck pain. Integumentary: No wounds, no lesions. No rash or pruritus. No unusual bruising. No change in hair or nails. Neurologic: No aphasia. No facial droop. No change in mentation. No head injury. No headache. No paralysis. positive for paresthesia. Psychiatric: No depression. No anxiety. No mood swings. Endocrine: No abnormal blood sugars. No weight change. PHYSICAL EXAMINATION: General: This is an 85-year-old male who is laying down in bed in no apparent distress. HEENT: Head is atraumatic, normocephalic, pupils were equal round reactive to light and recommendation, extraocular muscle movement were intact, sclera nonicteric, conjunctivae were pale, mucous membranes of the mouth are somewhat dry. Neck: Supple, no JVP, normal carotid upstroke bilaterally, no lymphadenopathy. Chest: Decreased breath sounds at the bases, few rhonchi, no expiratory wheezes, no chest wall tenderness, no intercostal retractions. Heart: First heart sound is normal, second heart sounds normal the systolic ejection murmur 2/6 over the left sternal border. Abdomen: Soft, nontender, nondistended, positive bowel sounds. Extremities: There is +1 edema no calf tenderness DP +2 bilaterally. Neurologic examination: Patient is awake alert and oriented X 3, cranial nerves II-12 appear grossly intact, muscle power were 5 out of 5 in upper extremities and 5 out of 5 in bilateral lower extremities, deep tendon reflexes normal bilaterally. ASSESSMENT AND PLAN: 1. Non-ST elevation myocardial infarction. Patient was recently hospitalized at [facility] he underwent echocardiogram that did show evidence of diastolic dysfunction normal LV function of 55% as well as mild aortic stenosis, patient was started on aspirin 81 mg every day, he is on heparin drip as well, he will be off beta terrance due to his bradyarrhythmias, we'll continue to monitor the patient very closely, continue patient on atorvastatin 40 mg every day, left heart catheterization scheduled for today. 2. History of coronary artery disease status post myocardial infarctions in the past. Continue aspirin 81 mg once every day, heparin drip, continue Lipitor 40 mg once every day, hold off beta terrance due to bradycardia arrhythmias and pauses. 3. Hypertension and hypertensive cardiovascular disease. Continue patient on amlodipine 5 mg orally twice every day, continue losartan 50 mg orally twice every day, continue clonidine 0.1 mg orally at bedtime, continue patient on on hydralazine 25 mg orally 3 times every day. 4. Hyperlipidemia. Start the patient on atorvastatin 40 mg orally once every day. 5. Chronic obstructive pulmonary disease. Continue patient on DuoNeb 3 mg nebulization 4 times every day as well as Trelegy Ellipta once every day. 6. Obesity with obstructive sleep apnea and obesity hypoventilation syndrome. Continue weight loss, continue CPAP machine. 7. Restless leg syndrome. Continue Requip 0.25 mg orally bedtime. 8. Chronic kidney disease stage II. The patient is stable. 9. Chronic diastolic heart failure. Continue patient on losartan 50 mg orally twice every day, continue patient on Lasix 40 mg orally twice every day. 10. GERD. Continue omeprazole 20 mg orally once every day. 11. Peripheral neuropathy. Continue gabapentin 600 mg in the evening and 300 m g in the morning. 12. Enlarged prostate. Continue Flomax 0.4 mg once every day. 13. DVT prophylaxis. Continue heparin drip. 14. GI prophylaxis. Continue with PPI. 15. Left heart catheterization today. Objective - Vital Signs Vital signs: Vital Signs Temp 98.3 F 01/18/21 02:00 Pulse 68 01/18/21 07:40 Resp 18 01/18/21 02:00 BP 154/62 01/18/21 02:00 Pulse Ox 93 L 01/18/21 02:00 Intake & Output 01/17/21 01/18/21 01/18/21 18:59 06:59 18:59 Intake Total 67.077 Output Total 400 Balance -332.923 Intake: Intake, IV Titration 67.077 Amount Heparin Sod,Pork in 0.45% 67.077 NaCl 25,000 unit In 0.45 % NaCl 1 250ml.bag @ 9. 585 UNITS/KG/HR 10 mls/hr IV .Q24H [facility] Rx#: [id number] Output: Urine 400 Other: Voiding Method Urinal Urinal Diaper Diaper # Voids 3 1 # Bowel Movements 0 - Labs CBC & Chem 7: 01/16/21 12:46 01/16/21 12:46 Labs: Abnormal Lab Results - Last 24 Hours (Table) 01/18/21 Range/Units 05:59 APTT 39.7 H (22.0-30.0) sec
[2021-01-18] MEDS ORDERED: VERAPAMIL 2.5 MG/ML 2 ML AMP ONE (08:16)
[2021-01-18] MEDS ORDERED: LIDOCAINE 1% INJ 10MG/ML (20 ML MDV) ONE (08:16)
[2021-01-18] MEDS ORDERED: IV FLUID CONTINUATION 600 ML IV ONE (08:27)
[2021-01-18] MEDS: LIDOCAINE 1% INJ 10MG/ML (20 ML MDV) SQ ONE ×2 (08:40→08:48)
[2021-01-18] MEDS ORDERED: VERAPAMIL SYRINGE (5 MG/10 ML) INTRAARTER ONE (08:43)
[2021-01-18] MEDS ORDERED: MIDAZOLAM 2 MG/2 ML VIAL IV ONE (08:43)
[2021-01-18] MEDS ORDERED: CYANOCOBALAMIN 500 MCG TAB PO SCH (09:00)
[2021-01-18] MEDS ORDERED: IOPAMIDOL-370 125ML BTL INJ ONE (09:01)
[2021-01-18] MEDS ORDERED: RX INFO: IV CONTRAST WAS GIVEN 1 EACH MISC MISCELLANE PRN (09:11)
[2021-01-18 09:15] LABS: HCT 32.6 % (39.6-50.0); HGB 10.4 g/dL (13.0-17.0); MCH 35.5 pg (27.0-32.0); MCHC 31.9 g/dL (32.0-37.0); MCV 111.3 fL (80.0-97.0); Mean Platelet Volume 10.5 fL (9.5-12.2); Platelet Count 396 X 10*3/uL (140-440); RBC 2.93 X 10*6/uL (4.40-5.60); RDW 13.4 % (11.5-14.5); WBC 9.92 X 10*3/uL (4.50-10.00)
[2021-01-18] MEDS ORDERED: SODIUM CHLORIDE 0.9% 1,000 ML IV SCH (09:15)
[2021-01-18] MEDS ORDERED: hydrALAZINE HCL 20 MG/ML 1 ML VIAL ONE (09:49)
[2021-01-18] MEDS ORDERED: hydrALAZINE HCL 20 MG/ML 1 ML VIAL IV ONE (09:56)
[2021-01-18] MEDS: CALCIUM CARB-VIT D 500 MG-5 MCG TAB PO SCH ×2 (10:27→17:59)
[2021-01-18] MEDS: FUROSEMIDE 40 MG TAB PO SCH ×2 (10:39→18:00)
[2021-01-18] MEDS: amLODIPine 5 MG TAB PO SCH ×2 (10:39→20:48)
[2021-01-18] MEDS: PANTOPRAZOLE 40 MG TABLET PO SCH (10:39)
[2021-01-18] MEDS: TAMSULOSIN 0.4 MG CAP.ER.24H PO SCH (10:39)
[2021-01-18] MEDS: hydrALAZINE HCL 25 MG TAB PO SCH ×3 (10:39→20:47)
[2021-01-18] MEDS: LOSARTAN 50 MG TAB PO SCH ×2 (10:39→20:48)
[2021-01-18] MEDS: GABAPENTIN 300 MG CAP PO SCH ×2 (10:40→20:48)
--- NOTE | 2021-01-18 10:46 | CC ---
CARDIAC CATHETERIZATION REPORT DATE OF PROCEDURE: 01/18/2021 PERFORMING PHYSICIAN: Cyrus Simeon M.D. PROCEDURE PERFORMED: 1. Selective right and left coronary angiogram. 2. Left heart catheterization. INDICATION: Acute kuk-TG-qzjddjlrm myocardial infarction. COMPLICATIONS: None. LEVEL OF SEDATION: Moderate, with sedation length of 28 minutes. PROCEDURE DESCRIPTION: After obtaining informed consent, the patient was brought to the cardiac crime lab analyst. Initially the right radial artery was cannulated using micropuncture technique. The micropuncture wire passed easily. Then I placed a 6-Burkinan sheath at the right radial artery. I gave the patient 2 mg of verapamil IA. Attempt to advance the wire across the right subclavian was unsuccessful due to extremely tortuous right subclavian artery. Because of that, I aborted the right radial approach and I decided to come from the groin. The right common femoral artery was cannulated using micropuncture technique and the micropuncture wire passed easily. Then I placed a 6-Burkinan sheath at the right common femoral artery. After that I did selective right and left coronary angiogram with JR4 and JL4 catheters. Left heart catheterization was performed using a 5-Burkinan pigtail catheter. The procedure was completed without any complication. SELECTIVE CORONARY ANGIOGRAM: 1. The right coronary artery is a large-caliber vessel. It is a dominant vessel. The RCA appeared to have diffuse disease up to about 60% in the PDA branch of the RCA and PLV branch of the RCA. The RCA is extremely calcified. 2. LEFT MAIN: The mid shaft of the left main appeared to have a plaque in the range of 20% to 30%. It bifurcates into LCX and LAD. 3. The LCX is a large-caliber vessel. It is a nondominant vessel. The LCX has mild disease only. 4. LAD. The proximal LAD has eccentric plaque that appeared to be in the range of 20% to 30%. The mid and distal LAD appeared to be angiographically normal. The LAD gives rise to multiple diagonal branches; they appeared to have mild disease only. 5. HEMODYNAMICS: The LVEDP was 25 mmHg with sygj-dz-ynrz gradient of 20 mmHg. CONCLUSION: 1. Extremely calcified right and left coronary systems. 2. Elevated LVEDP. 3. Wsbo-wd-ojph gradient of 20 mmHg. POSTPROCEDURE MANAGEMENT: 1. Medical treatment. 2. Follow up with the patient. MMODL / IJN: [id number] /
[2021-01-18 12:03] LABS: African American GFR (CKD) 48.5 (60.0-200.0); Albumin 3.6 g/dL (3.80-4.90); Albumin/Globulin Ratio 1.57 (1.60-3.17); Anion Gap 6.1 mmol/L (4.00-12.00); BUN/Creat Ratio 18.67 Ratio (12.00-20.00); Calcium 10.4 mg/dL (8.7-10.3); Carbon Dioxide 28.9 mmol/L (21.6-31.8); Globulin 2.3 g/dL (1.6-3.3); Non-African American GFR(CKD) 41.8 (60.0-200.0); Potassium 4.2 mmol/L (3.5-5.5); Total Bilirubin 0.5 mg/dL (0.3-1.2); Total Protein 5.9 g/dL (6.2-8.2)
[2021-01-18 12:37] LABS: Basophils # (A) 0.07 X 10*3/uL (0.00-0.10); Basophils % (A) 0.7 %; Lymphocytes # (A) 2.72 X 10*3/uL (0.90-5.00); Lymphocytes % (A) 27.4 %; Monocytes # (A) 1.51 X 10*3/uL (0.20-1.00); Monocytes % (A) 15.2 %; Neutrophils # (A) 5.17 X 10*3/uL (1.80-7.70); Neutrophils % (A) 52.2 %
[2021-01-18] MEDS: FOLIC ACID 1 MG TAB PO SCH (17:57)
[2021-01-18] MEDS: VIT A,C & E-LUTEIN-MINERALS 1 EACH TAB PO SCH (17:57)
[2021-01-18] MEDS: FERROUS SULFATE 325 MG TAB PO SCH (17:57)
[2021-01-18] MEDS: HEPARIN SOD,PORK IN 0.45% NACL 25,000 UNIT in 0.45% NACL 1 250ML.BAG IV SCH (18:45)
[2021-01-18] MEDS: cloNIDine HCL 0.1 MG TAB PO SCH (20:50)
[2021-01-19] MEDS: NITROGLYCERIN OINT 1 INCH/GM PACKET TOPICAL SCH (05:19)
--- NOTE | 2021-01-19 06:47 | ECHOF ---
Referral Reason:Chest pain MEASUREMENTS -------- HEIGHT: 170.2 cm WEIGHT: 104.3 kg BP: RVIDd: 3.4 cm (< 3.3) IVSd: 1.6 cm (0.6 - 1.1) LVIDd: 5.5 cm (3.9 - 5.3) LVPWd: 1.8 cm (0.6 - 1.1) IVSs: 1.6 cm LVIDs: 4.0 cm LVPWs: 2.3 cm LAESV Index (A-L): 66.96 ml/m Ao Diam: 3.9 cm (2.0 - 3.7) AV Cusp: 1.6 cm (1.5 - 2.6) LA Diam: 4.2 cm (2.7 - 3.8) MV EXCURSION: 20.195 mm (> 18.000) MV EF SLOPE: 41 mm/s (70 - 150) EPSS: 0.5 cm MV E Higinio: 1.23 m/s MV DecT: 176 ms MV A Higinio: 1.52 m/s MV E/A Ratio: 0.81 AV maxP.61 mmHg AV meanP.63 mmHg AR PHT: 496 ms RAP: 15.00 mmHg RVSP: 47.23 mmHg FINDINGS -------- This was a technically adequate study. The left ventricular size is normal. There is severe concentric left ventricular hypertrophy. Ove rall left ventricular systolic function is normal with, an EF between 55 - 60 %. Increased LAP Grad e 2 Diastolic Dysfunction. The right ventricle is mildly enlarged. LA is severely dilated >40 ml/m2 The right atrial size is normal. The aortic valve is trileaflet and appears structurally normal. There is mild aortic regurgitation. There is kuacvrqy-rx-iwgnhb aortic stenosis present. Peak/mean gradient across the Aortic Valve is 51.61mmHg / 28.63mmHg. The mitral valve is normal. There is trace mitral regurgitation. The tricuspid valve appears structurally normal. Mild tricuspid regurgitation present. There is m ild pulmonary hypertension. The right ventricular systolic pressure, as measured by Doppler, is 47. 23mmHg. There is no pulmonic regurgitation present. The aortic root size is normal. The inferior vena cava is mildly dilated. There is no pericardial effusion. CONCLUSIONS -------- 1. The left ventricular size is normal. 2. There is severe concentric left ventricular hypertrophy. 3. Overall left ventricular systolic function is normal with, an EF between 55 - 60 %. 4. Increased LAP Grade 2 Diastolic Dysfunction. 5. The right ventricle is mildly enlarged. 6. LA is severely dilated >40 ml/m2 7. The aortic valve is trileaflet and appears structurally normal. 8. There is mild aortic regurgitation. 9. There is iyowrcnk-ng-xfamba aortic stenosis present. 10. Peak/mean gradient across the Aortic Valve is 51.61mmHg / 28.63mmHg. 11. There is trace mitral regurgitation. 12. Mild tricuspid regurgitation present. 13. There is mild pulmonary hypertension. 14. The right ventricular systolic pressure, as measured by Doppler, is 47.23mmHg. 15. The inferior vena cava is mildly dilated. 16. There is no pericardial effusion. GSE MECHANIC: Adali Todd RDCS
[2021-01-19] MEDS: SYMBICORT 80-4.5 MCG INHALER INHALATION SCH (07:06)
[2021-01-19] MEDS: IPRATROPIUM 0.5 MG/2.5 ML NEBU INHALATION SCH ×2 (07:06→10:22)
[2021-01-19 08:09] VITALS: BP 156/65; RESP 17; TEMP 97
[2021-01-19] MEDS: GABAPENTIN 300 MG CAP PO SCH (08:35)
[2021-01-19] MEDS: CALCIUM CARB-VIT D 500 MG-5 MCG TAB PO SCH (08:35)
[2021-01-19] MEDS: FERROUS SULFATE 325 MG TAB PO SCH (08:36)
[2021-01-19] MEDS: PANTOPRAZOLE 40 MG TABLET PO SCH (08:36)
[2021-01-19] MEDS: amLODIPine 5 MG TAB PO SCH (08:36)
[2021-01-19] MEDS: FOLIC ACID 1 MG TAB PO SCH (08:36)
[2021-01-19] MEDS: VIT A,C & E-LUTEIN-MINERALS 1 EACH TAB PO SCH (08:36)
[2021-01-19] MEDS: hydrALAZINE HCL 25 MG TAB PO SCH (08:36)
[2021-01-19] MEDS: LOSARTAN 50 MG TAB PO SCH (08:36)
[2021-01-19] MEDS: TAMSULOSIN 0.4 MG CAP.ER.24H PO SCH (08:37)
[2021-01-19] MEDS: FUROSEMIDE 40 MG TAB PO SCH (08:37)
[2021-01-19] MEDS ORDERED: ASPIRIN 325 MG TAB PO SCH (09:00)
[2021-01-19] MEDS ORDERED: ASPIRIN 81 MG PO SCH (09:00)
[2021-01-19] MEDS ORDERED: ATORVASTATIN 40 MG TAB PO SCH (09:00)
[2021-01-19 09:26] LABS: Basophils # (A) 0.08 X 10*3/uL (0.00-0.10); Basophils % (A) 0.8 %; Eosinophils # (A) 0.33 X 10*3/uL (0.04-0.35); Eosinophils % (A) 3.3 %; HCT 33.9 % (39.6-50.0); HGB 10.8 g/dL (13.0-17.0); Lymphocytes # (A) 3.22 X 10*3/uL (0.90-5.00); Lymphocytes % (A) 32.3 %; MCH 35.3 pg (27.0-32.0); MCHC 31.9 g/dL (32.0-37.0); MCV 110.8 fL (80.0-97.0); Mean Platelet Volume 10.1 fL (9.5-12.2); Monocytes # (A) 1.47 X 10*3/uL (0.20-1.00); Monocytes % (A) 14.7 %; Neutrophils # (A) 4.85 X 10*3/uL (1.80-7.70); Neutrophils % (A) 48.6 %; Platelet Count 341 X 10*3/uL (140-440); RBC 3.06 X 10*6/uL (4.40-5.60); RDW 13.8 % (11.5-14.5); WBC 9.98 X 10*3/uL (4.50-10.00)
--- NOTE | 2021-01-19 10:08 | P.PN ---
Subjective Patient is seen and examined sitting up in no acute distress. He is status post cardiac catheterization via the right radial artery revealing diffuse disease within the RCA up to 60% and PDA branch and extremely calcified, left main with a plaque in the range of 20-30%, circumflex with mild disease only, LAD with a proximal lesion approximately 20-30% with an elevated LVEDP and it peak to peak gradient of 20 mmHg. He has no symptoms of chest discomfort or shortness of breath. Blood pressure 156/65 heart rate 62 afebrile maintaining oxygen saturation on room air. Laboratory data reviewed, WBC 9, hemoglobin 10.8 and platelets 341. Currently maintained on amlodipine 5 mg twice a day, aspirin 325 mg daily, atorvastatin 40 mg daily, clonidine 0.1 mg at bedtime, Lasix 40 mg by mouth twice a day, hydralazine 25 mg 3 times a day and losartan 50 mg twice a day. Echocardiogram obtained reveals preserved LV systolic function with ejection fraction 55-60%, grade 2 diastolic dysfunction, severely dilated left atrium, moderate to severe aortic stenosis with a mean gradient of 28 mmHg, mild TR and mild pulmonary hypertension. GENERAL: Well-appearing, well-nourished and in no acute distress. NECK: Supple without JVD or thyromegaly. LUNGS: Breath sounds clear to auscultation bilaterally. Respiration equal and unlabored. No wheezes, rales or rhonchi. HEART: Regular rate and rhythm with systolic ejection murmur at the base, no rubs or gallops. S1 and S2 heard. EXTREMITIES: Normal range of motion, no edema. No clubbing or cyanosis. P eripheral pulses intact. Right radial access site soft, non-tender with no ecchymosis or hematoma. ASSESSMENT Non-ST elevated myocardial infarction Coronary artery disease Hypertension Dyslipidemia Chronic diastolic heart failure Aortic stenosis Daily alcohol intake PLAN Decrease aspirin to 81 mg daily. No beta blockers currently due to some bradycardia noted, will address further as an outpatient. Stable for discharge from a cardiac perspective on current medical regimen. Follow-up in the office with Dr. Simeon upon discharge. Nurse Practitioner note has been reviewed, I agree with a documented findings and plan of care. Patient was seen and examined. Objective - Vital Signs Vital signs: Vital Signs Temp 97 F L 01/19/21 07:00 Pulse 62 01/19/21 07:20 Resp 17 01/19/21 07:00 BP 156/65 08/24/21 07:00 Pulse Ox 93 L 01/19/21 07:00 Intake & Output 01/18/21 01/19/21 01/19/21 18:59 06:59 18:59 Intake Total 640 400 Output Total 700 800 Balance -60 -800 400 Intake: IV 100 Oral 540 400 Output: Urine 700 800 Other: Voiding Method Urinal Urinal Urinal Diaper Diaper Diaper # Voids 2 - Labs CBC & Chem 7: 01/19/21 06:40 01/18/21 05:59 Labs: Abnormal Lab Results - Last 24 Hours (Table) 01/18/21 01/18/21 01/19/21 Range/Units 05:59 05:59 06:40 RBC 3.06 L (4.40-5.60) X 10*6/uL Hgb 10.8 L (13.0-17.0) g/dL Hct 33.9 L (39.6-50.0) % MCV 110.8 H (80.0-97.0) fL MCH 35.3 H (27.0-32.0) pg MCHC 31.9 L (32.0-37.0) g/dL Immature Gran # 0.05 H (0.00-0.04) X 10*3/uL Monocytes # 1.51 H 1.47 H (0.20-1.00) X 10*3/uL Eosinophils # 0.40 H (0.04-0.35) X 10*3/uL BUN 28.0 H (9.0-27.0) mg/dL Est GFR (CKD-EPI)AfAm 48.5 L (60.0-200.0) Est GFR (CKD-EPI)NonAf 41.8 L (60.0-200.0) Glucose 130 H (70-110) mg/dL Calcium 10.4 H (8.7-10.3) mg/dL Total Protein 5.9 L (6.2-8.2) g/dL Albumin 3.60 L (3.80-4.90) g/dL Albumin/Globulin Ratio 1.57 L (1.60-3.17) g/dL
[2021-01-19 11:18] VITALS: PULSE 53
--- NOTE | 2021-01-19 13:05 | P.DS ---
Providers Date of admission: 01/18/21 16:36 Expected date of discharge: 01/19/21 Attending physician: Ryan Hollins Consults: 01/16/21 13:56 Consult Physician Urgent Consulting Provider: [facility] Reason/Comments: Unstable angina Do you want consulting provider notified?: Yes Primary care physician: Ryan Hollins Hospital Course: HISTORY OF PRESENT ILLNESS: This is an 85-year-old male one of my patient with a previous medical history significant for hypertension and hypertensive cardio vascular disease, hyperlipidemia, history of chronic obstructive pulmonary disease, history of chronic diastolic heart failure, chronic kidney disease, obesity with obstructive sleep apnea and obesity hypoventilation syndrome, history of skin cancer, patient was recently hospitalized at [facility] after he was admitted to the hospital with increased swelling in both lower extremity and increased shortness of breath was seen in consultation by pulmonary medicine as well as by cardiology he underwent a battery of testing including us x-ray as well as echocardiogram that showed normal ejection fraction of 55% with mild aortic stenosis and diastolic dysfunction, and he developed to have a significant bradycardia arrhythmias he was taken off beta blockers and his medications were adjusted, and the patient followed up with me as an outpatient in the office last week and he was doing fine with a new changes of his medication apparently the patient was brought into the emergency department at [facility] yesterday because of increased chest pain and shortness of breath he stated that he woke up at 3:00 in the morning on the day of the admission with increased chest pain and heaviness he took 2 nitroglycerin without relief EMS came and saw the patient on became the third nitro glycerin and an aspirin and transported him to the emergency department at [facility] his 12-lead EKG showed sinus rhythm with first-degree AV block and a Q- wave inferiorly suggestive of an old CA, chest x-ray did not show any evidence of acute of normalities, patient was admitted to the hospital for evaluation by cardiology . 01/18: Patient sitting up at the edge of the bed he is feeling fine and he slept well last night, he denies any chest pain, shortness breath he continues to be on heparin drip, he was seen in consultation by cardiology yesterday scheduled to go for left heart catheterization today because of positive troponin and chest pain, based on heart catheterization and further recommendations is to follow, patient has not had any abdominal pain, nausea, vomiting, or diarrhea, he seems to be tolerating his treatment very well. discharge diagnoses: 1. Non-ST elevation myocardial infarction. 2. History of coronary artery disease status post myocardial infarctions in the past. 3. Hypertension and hypertensive cardiovascular disease. 4. Hyperlipidemia. 5. Chronic obstructive pulmonary disease. 6. Obesity with obstructive sleep apnea and obesity hypoventilation syndrome. 7. Restless leg syndrome. 8. Chronic kidney disease stage II. 9. Chronic diastolic heart failure. 10. GERD. 11. Peripheral neuropathy. 12. Enlarged prostate. Plan - Discharge Summary Discharge Rx Participant: No New Discharge Prescriptions: No Action Ammonium Lactate Cream [Lac-Hydrin 12% Cream] 1 applic TOPICAL BID Aspirin EC [Ecotrin Low Dose] 81 mg PO DAILY Cyanocobalamin (Vitamin B-12) [Vitamin B-12] 1,000 mcg PO Q48H Docusate [Colace] 100 mg PO DAILY PRN PRN Reason: Constipation Losartan [Cozaar] 50 mg PO BID Omeprazole 20 mg PO DAILY rOPINIRole HCL [Requip] 0.25 mg PO HS Tamsulosin [Flomax] 0.4 mg PO DAILY Vit C/E/Zn/Coppr/Lutein/Zeaxan [Preservision Areds 2 Softgel] 1 cap PO DAILY Citalopram Hydrobromide [CeleXA] 10 mg PO DAILY Ipratropium/Albuter 20-100Mcg [Combivent Respimat 20-100Mcg Inhaler] 1 puff INHALATION RT-Q6H Potassium Chloride [Klor-Con 10 ER] 10 meq PO BID Calcium Carbonate/Vitamin D3 [Calcium 500-Vit D3 5 Mcg (200 Iu)] 1 tab PO AC- BID Ferrous Sulfate [Feosol] 325 mg PO DAILY Fluticasone/Umeclidin/Vilanter [Trelegy Ellipta 100-62.5-25] 1 puff INHALATION RT-DAILY Folic Acid 1 mg PO DAILY Furosemide [Lasix] 40 mg PO BID Gabapentin 600 mg PO HS Gabapentin [Neurontin] 300 mg PO DAILY Ipratropium-Albuterol Nebulize [Duoneb 0.5 mg-3 mg/3 ml Soln] 3 ml INHALATION RT-QID PRN PRN Reason: Shortness Of Breath Nitroglycerin Sl Tabs [Nitrostat] 0.4 mg SL Q5M PRN PRN Reason: Chest Pain Kapvay 0.1 Er 0.1 mg PO HS amLODIPine [Norvasc] 5 mg PO BID Discharge Medication List Ammonium Lactate Cream [Lac-Hydrin 12% Cream] 1 applic TOPICAL BID 01/16/21 [History] Aspirin EC [Ecotrin Low Dose] 81 mg PO DAILY 01/16/21 [History] Calcium Carbonate/Vitamin D3 [Calcium 500-Vit D3 5 Mcg (200 Iu)] 1 tab PO AC-BID 01/16/21 [History] Cyanocobalamin (Vitamin B-12) [Vitamin B-12] 1,000 mcg PO Q48H 01/16/21 [History] Docusate [Colace] 100 mg PO DAILY PRN 01/16/21 [History] Ferrous Sulfate [Feosol] 325 mg PO DAILY 01/16/21 [History] Fluticasone/Umeclidin/Vilanter [Trelegy Ellipta 100-62.5-25] 1 puff INHALATION RT-DAILY 01/16/21 [History] Folic Acid 1 mg PO DAILY 01/16/21 [History] Furosemide [Lasix] 40 mg PO BID 01/16/21 [History] Gabapentin 600 mg PO HS 01/16/21 [History] Gabapentin [Neurontin] 300 mg PO DAILY 01/16/21 [History] Ipratropium-Albuterol Nebulize [Duoneb 0.5 mg-3 mg/3 ml Soln] 3 ml INHALATION RT-QID PRN 01/16/21 [History] Losartan [Cozaar] 50 mg PO BID 01/16/21 [History] Nitroglycerin Sl Tabs [Nitrostat] 0.4 mg SL Q5M PRN 01/16/21 [History] Omeprazole 20 mg PO DAILY 01/16/21 [History] Tamsulosin [Flomax] 0.4 mg PO DAILY 01/16/21 [History] Vit C/E/Zn/Coppr/Lutein/Zeaxan [Preservision Areds 2 Softgel] 1 cap PO DAILY 01/16/21 [History] rOPINIRole HCL [Requip] 0.25 mg PO HS 01/16/21 [History] Citalopram Hydrobromide [CeleXA] 10 mg PO DAILY 01/18/21 [History] Ipratropium/Albuter 20-100Mcg [Combivent Respimat 20-100Mcg Inhaler] 1 puff INHALATION RT-Q6H 01/18/21 [History] Kapvay 0.1 Er 0.1 mg PO HS 01/18/21 [History] Potassium Chloride [Klor-Con 10 ER] 10 meq PO BID 01/18/21 [History] amLODIPine [Norvasc] 5 mg PO BID 01/18/21 [History] Follow up Appointment(s)/Referral(s): Ryan Hollins MD [Primary Care Provider] - 1-2 days Cyrus Simeon MD [STAFF PHYSICIAN] - 1 Week
[2021-01-19 15:16] LABS: African American GFR (CKD) 48.5 (60.0-200.0); Albumin 3.6 g/dL (3.80-4.90); Albumin/Globulin Ratio 1.71 (1.60-3.17); Anion Gap 7.4 mmol/L (4.00-12.00); BUN/Creat Ratio 17.33 Ratio (12.00-20.00); Calcium 10.5 mg/dL (8.7-10.3); Carbon Dioxide 31.6 mmol/L (21.6-31.8); Globulin 2.1 g/dL (1.6-3.3); Non-African American GFR(CKD) 41.8 (60.0-200.0); Potassium 4.1 mmol/L (3.5-5.5); Total Bilirubin 0.5 mg/dL (0.3-1.2); Total Protein 5.7 g/dL (6.2-8.2)
== END 2021-01-19 15:46 | disposition home health service (06) | DRG 281 ==
LOC: EC 11:54 → 6NMEDSUR 13:54 → OBSVTOIN 01-18 16:36
PROVIDERS: ADMIT Internal Medicine; ATTEND Internal Medicine
PROC: B2111ZZ Fluoroscopy of Multiple Coronary Arteries using Low Osmolar Contrast (ICD-10-PCS; 2021-01-18)
PROC: 4A023N7 Measurement of Cardiac Sampling and Pressure, Left Heart, Percutaneous Approach (ICD-10-PCS; principal; 2021-01-18 09:30)
DX: I21.4 Non-ST elevation (NSTEMI) myocardial infarction (principal); E66.2 Morbid (severe) obesity with alveolar hypoventilation; I13.0 Hypertensive heart and chronic kidney disease with heart failure and stage 1 through stage 4 chronic kidney disease, or unspecified chronic kidney disease; I50.32 Chronic diastolic (congestive) heart failure; Z16.24 Resistance to multiple antibiotics; I25.110 Atherosclerotic heart disease of native coronary artery with unstable angina pectoris; E78.00 Pure hypercholesterolemia, unspecified; E78.5 Hyperlipidemia, unspecified; F17.200 Nicotine dependence, unspecified, uncomplicated; G25.81 Restless legs syndrome; G62.9 Polyneuropathy, unspecified; I25.2 Old myocardial infarction; J44.9 Chronic obstructive pulmonary disease, unspecified; K21.9 Gastro-esophageal reflux disease without esophagitis; N18.2 Chronic kidney disease, stage 2 (mild); N40.0 Benign prostatic hyperplasia without lower urinary tract symptoms; Z79.01 Long term (current) use of anticoagulants; Z79.82 Long term (current) use of aspirin; Z79.899 Other long term (current) drug therapy; Z80.0 Family history of malignant neoplasm of digestive organs; Z80.3 Family history of malignant neoplasm of breast; Z82.0 Family history of epilepsy and other diseases of the nervous system; Z82.49 Family history of ischemic heart disease and other diseases of the circulatory system; Z83.3 Family history of diabetes mellitus; Z85.828 Personal history of other malignant neoplasm of skin; Z90.81 Acquired absence of spleen; Z96.653 Presence of artificial knee joint, bilateral; I35.0 Nonrheumatic aortic (valve) stenosis; I27.22 Pulmonary hypertension due to left heart disease; M19.90 Unspecified osteoarthritis, unspecified site; Z71.3 Dietary counseling and surveillance
CPT/HCPCS: 36415; 71046; 80053; 80061; 83735; 84484; 85025; 85610; 85730; 93005; 93306; 93458; 94640; 96374; 99291